=== PATIENT | male | born 1995 | race Caucasian/White ===

== ENCOUNTER 2016-12-31 22:14 | Emergency (ER) | payer OTHER ==
--- NOTE | ~2016-12-31 | CR281 ---
[facility] A Service of [facility] RADIOLOGY TEXT RESULTS PATIENT: NICO SCHWAB LOCATION: SED : 94 UNIT #: [id number] AGE: [address]: FORTUNATO DIAZ PA-C SEX: M ORDER DR: [id number] [address] [id number] E MR#: [id number] Acc #: [id number] NAME: NICO SCHWAB : 1995 SEX: M STUDY DATE/TIME: 12/31/2016 22:51 UNIT: SED ROOM: STUDY DESCRIPTION: CR Wrist Min 3 View Lt Attending Physician: Fortunato Diaz Pa-C Ordering Physician: Jaime Leach M.D. Primary Care Physician: Poppy Meyer MEDICAL IMAGING REPORT This report is preliminary unless electronic signature is present. EXAM Three-views left wrist. Date: 12/31/2016 HISTORY 21-year-old male with complaints of left wrist and forearm pain after falling off skateboard tonight. COMPARISON 2 views left forearm 12/31/2016. FINDINGS Wrist evaluation in multiple projections shows normal mineralization of the bony structures about the wrist and satisfactory articular relationship of the radius and ulna to the proximal carpal row and of the distal carpal segments to the metacarpal bases. There is no indication of fracture or dislocation, and no soft tissue radiopaque foreign body is present. No congenital defects are apparent. IMPRESSION Normal left wrist. Dictated by... Valerie Amado M.D. THIS IS AN ELECTRONICALLY VERIFIED REPORT Valerie Amado M.D. at 01/01/2017 10:03 PM MITRA/sherice TD: 01/01/2017 06:33 JOB #: [id number] [facility] A Service of [facility] RADIOLOGY TEXT RESULTS PATIENT: NCIO SCHWAB LOCATION: SED : 94 UNIT #: [id number] AGE: [address]: FORTUNATO DIAZ PA-C SEX: M ORDER DR: MEDICAL IMAGING REPORT
--- NOTE | ~2016-12-31 | CT71 ---
[facility] A Service [facility] RADIOLOGY TEXT RESULTS PATIENT: NICO SCHWAB LOCATION: SED : [birth year] UNIT #: [id number] AGE: [address]: FORTUNATO DIAZ PA-C SEX: M ORDER DR: [id number] [place] [id number] E MR#: [id number] Acc #: [id number] NAME: NICO SCHWAB : 1995 SEX: M STUDY DATE/TIME: 12/31/2016 22:59 UNIT: SED ROOM: STUDY DESCRIPTION: CT Head Wo Contrast Attending Physician: Fortunato Diaz Pa-C Ordering Physician: Jaime Leach M.D. Primary Care Physician: Poppy Meyer MEDICAL IMAGING REPORT This report is preliminary unless electronic signature is present. EXAM Noncontrast CT head. Date: 12/31/2016 at 22:59 HISTORY 21-year-old male with headache and swelling and bruising along the left side of the head. Fell off skateboard tonight. COMPARISON None. This CT exam was performed with one or more of the following radiation dose reduction techniques: automatic exposure control, adjustment of mA and/or kV according to patient size, and iterative reconstruction. FINDINGS Left parietal scalp soft tissue swelling is present. No acute displaced calvarial fracture is seen. Mild bilateral ethmoid and right sphenoid mucosal thickening is present. Mastoid air cells are clear. No acute intracranial hemorrhage, mass lesion, mass effect or midline shift. Ventricular configuration is within normal limits. No evidence of acute or evolving infarct. IMPRESSION 1. Left posterior parietal scalp soft tissue swelling. No acute intracranial findings. 2. Mild ethmoid and right sphenoid sinus mucosal thickening. 1. Dictated by... Valerie Amado M.D. [facility] A Service [facility] RADIOLOGY TEXT RESULTS PATIENT: NICO SCHWAB LOCATION: SED : [birth year] UNIT #: [id number] AGE: [address]: FORTUNATO DIAZ PA-C SEX: M ORDER DR: THIS IS AN ELECTRONICALLY VERIFIED REPORT Valerie Amado M.D. at 01/01/2017 10:03 PM Jamey TD: 01/01/2017 06:35 JOB #: [id number] MEDICAL IMAGING REPORT
--- NOTE | ~2016-12-31 | CR132 ---
[facility] A Service of [facility] RADIOLOGY TEXT RESULTS PATIENT: NICO SCHWAB LOCATION: SED : [birth year] UNIT #: [id number] AGE: [address]: FORTUNATO DIAZ PA-C SEX: M ORDER DR: [id number] [address] [address] [id number] E MR#: [id number] Acc #: [id number] NAME: NICO SCHWAB : 1995 SEX: M STUDY DATE/TIME: 12/31/2016 22:51 UNIT: SED ROOM: STUDY DESCRIPTION: CR Forearm 2 View Lt Attending Physician: Fortunato Diaz Pa-C Ordering Physician: Jaime Leach M.D. Primary Care Physician: Vianey Meyer M.D. MEDICAL IMAGING REPORT This report is preliminary unless electronic signature is present. EXAM Left forearm 2 views 12/31/2016 HISTORY Wrist pain tonight. Patient fell off skateboard. COMPARISON 3 views left wrist 12/31/2016. FINDINGS AP and lateral views of the forearm show no evidence of fracture or destructive bone lesion. No periosteal elevation is seen. No radiodense foreign bodies are noted. Adjacent soft tissue structures are normal. IMPRESSION Normal forearm. Dictated by... Valerie Amado M.D. THIS IS AN ELECTRONICALLY VERIFIED REPORT Valerie Amado M.D. at 01/01/2017 10:03 PM MITRA/yang TD: 01/01/2017 06:36 JOB #: [id number] MEDICAL IMAGING REPORT
[~2016-12-31 22:14] MED LIST: AUGMENTIN PO; NO MEDICATIONS
== END 2017-01-01 00:16 | disposition home or self-care (01) ==
LOC: SED 22:14
DX: S63.502A Unspecified sprain of left wrist, initial encounter (principal); S00.03XA Contusion of scalp, initial encounter; S70.212A Abrasion, left hip, initial encounter; S80.212A Abrasion, left knee, initial encounter; S50.312A Abrasion of left elbow, initial encounter; I10 Essential (primary) hypertension; F41.9 Anxiety disorder, unspecified; W17.89XA Other fall from one level to another, initial encounter; Y93.44 Activity, trampolining; Y92.830 Public park as the place of occurrence of the external cause
CPT/HCPCS: 29125; 70450; 73090; 73110; 99284